=== PATIENT | female | born 1935 | race Caucasian/White ===

== ENCOUNTER 2021-04-18 12:12 | Inpatient (IN) | payer MEDICARE ==
[~2021-04-18] VITALS: Ht 162.5 cm; Wt 83.0 kg
[2021-04-18 12:12] VITALS: BP 171/91
[2021-04-18 13:15] LABS: MEAN CELL VOLUME 94.2 fl (81.0-99.0); MEAN CORPUSCULAR HGB 31.2 pg (27.0-31.0); MEAN CORPUSCULAR HGB CONC 33.1 g/dl (33.0-37.0); MEAN PLATELET VOLUME 10.2 fl (9.6-12.3); PLATELET COUNT AUTOMATED 246 10*3/uL (130-400); RED BLOOD COUNT 3.82 10*6/uL (4.10-5.10); RED CELL DISTRI WIDTH 12.4 % (0-14.5); WHITE BLOOD COUNT 11.4 10*3/uL (4.8-10.8)
[2021-04-18 13:32] LABS: ALBUMIN 2.7 gm/dl (3.1-4.5); CREATININE 1.34 mg/dL (0.55-1.02); POTASSIUM 4.9 mmol/L (3.5-5.1); TOTAL PROTEIN 6.6 gm/dL (6.4-8.2); TROPONIN I 0.016 ng/ml (<0.045)
[2021-04-18 13:37] LABS: OVALOCYTES MODERATE; PLATELET SUFFICIENCY NORMAL (NORMAL); TOTAL CELLS COUNTED 100 #CELLS
[2021-04-18 13:55] VITALS: BP 172/83
[2021-04-18 15:58] VITALS: BP 172/80
[2021-04-18 17:20] VITALS: BP 173/93
[2021-04-18 23:49] VITALS: BP 176/73
[2021-04-19 07:39] LABS: HEMATOCRIT 33.6 % (37.0-47.0); MEAN CELL VOLUME 95.7 fl (81.0-99.0); MEAN CORPUSCULAR HGB 31.9 pg (27.0-31.0); MEAN CORPUSCULAR HGB CONC 33.3 g/dl (33.0-37.0); MEAN PLATELET VOLUME 10.1 fl (9.6-12.3); PLATELET COUNT AUTOMATED 213 10*3/uL (130-400); RED BLOOD COUNT 3.51 10*6/uL (4.10-5.10); RED CELL DISTRI WIDTH 12.4 % (0-14.5); WHITE BLOOD COUNT 12.5 10*3/uL (4.8-10.8)
[2021-04-19 07:48] LABS: ACT PARTIAL THROMBO TIME 23.1 SECONDS (20.0-32.1); INTERNATIONAL NORM RATIO 1.1 (2.0-3.5)
[2021-04-19 08:00] VITALS: BP 112/68
[2021-04-19 08:12] LABS: ALBUMIN 2.4 gm/dl (3.1-4.5); ALKALINE PHOSPHATASE 77 U/L (45-117); BUN 55 mg/dl (7-24); CHLORIDE 113 mmol/L (98-107); CHOLESTEROL 135 mg/dL (<200); FREE T4 0.96 ng/dl (0.76-1.46); LDL CHOLESTEROL 75 mg/dL (9-159); SGOT/AST 8 IU/L (3-35); SGPT/ALT 14 U/L (12-78); SODIUM 142 mmol/L (136-145); TOTAL PROTEIN 5.8 gm/dL (6.4-8.2); TRIGLYCERIDES 98 mg/dl (<150)
[2021-04-19 08:32] LABS: PLATELET SUFFICIENCY NORMAL (NORMAL); TOTAL CELLS COUNTED 100 #CELLS
[2021-04-19 12:00] VITALS: BP 116/70
[2021-04-19 14:00] VITALS: BP 132/72
[2021-04-19 20:00] VITALS: BP 158/71
[2021-04-20] VITALS: BP 106/55
[2021-04-20 07:31] LABS: MEAN CELL VOLUME 96.5 fl (81.0-99.0); MEAN CORPUSCULAR HGB 32.2 pg (27.0-31.0); MEAN CORPUSCULAR HGB CONC 33.3 g/dl (33.0-37.0); MEAN PLATELET VOLUME 10.2 fl (9.6-12.3); PLATELET COUNT AUTOMATED 191 10*3/uL (130-400); RED BLOOD COUNT 3.42 10*6/uL (4.10-5.10); RED CELL DISTRI WIDTH 12.6 % (0-14.5); WHITE BLOOD COUNT 14.7 10*3/uL (4.8-10.8)
[2021-04-20 07:41] LABS: CREATININE 1.22 mg/dL (0.55-1.02); POTASSIUM 4.2 mmol/L (3.5-5.1)
[2021-04-20 08:00] VITALS: BP 154/74
[2021-04-20 08:34] LABS: PLATELET SUFFICIENCY NORMAL (NORMAL); TOTAL CELLS COUNTED 100 #CELLS
[2021-04-20 12:00] VITALS: BP 102/50
[2021-04-20 16:00] VITALS: BP 128/56
[2021-04-20 20:00] VITALS: BP 136/57
[2021-04-21] VITALS: BP 143/69
[2021-04-21 06:50] LABS: BASO % 0.1 % (0.0-1.0); HEMATOCRIT 35.1 % (37.0-47.0); LYMPH # 1.1 10*3/uL (1.3-4.4); LYMPH % 7.4 % (27.0-41.0); MEAN CELL VOLUME 95.9 fl (81.0-99.0); MEAN CORPUSCULAR HGB 31.4 pg (27.0-31.0); MEAN CORPUSCULAR HGB CONC 32.8 g/dl (33.0-37.0); MEAN PLATELET VOLUME 10.5 fl (9.6-12.3); MONO # 0.8 10*3/uL (0.1-1.0); MONO % 5.6 % (3.0-9.0); NEUT # 12.1 10*3/uL (2.3-7.9); NEUT % 84.9 % (47.0-73.0); PLATELET COUNT AUTOMATED 190 10*3/uL (130-400); RED BLOOD COUNT 3.66 10*6/uL (4.10-5.10); RED CELL DISTRI WIDTH 12.6 % (0-14.5); WHITE BLOOD COUNT 14.3 10*3/uL (4.8-10.8)
[2021-04-21 07:16] LABS: CREATININE 1.13 mg/dL (0.55-1.02); POTASSIUM 4.6 mmol/L (3.5-5.1)
[2021-04-21 08:00] VITALS: BP 151/75
[2021-04-21 12:00] VITALS: BP 119/45
[2021-04-21 16:00] VITALS: BP 114/46
[2021-04-21 20:00] VITALS: BP 134/62
[2021-04-22] VITALS: BP 111/68
[2021-04-22 07:04] LABS: BASO % 0.1 % (0.0-1.0); EOS % 0.1 % (1.0-4.0); HEMATOCRIT 34.1 % (37.0-47.0); LYMPH % 7.2 % (27.0-41.0); MEAN CELL VOLUME 95.5 fl (81.0-99.0); MEAN CORPUSCULAR HGB 31.4 pg (27.0-31.0); MEAN CORPUSCULAR HGB CONC 32.8 g/dl (33.0-37.0); MEAN PLATELET VOLUME 10.6 fl (9.6-12.3); MONO # 1.1 10*3/uL (0.1-1.0); MONO % 7.6 % (3.0-9.0); NEUT # 11.8 10*3/uL (2.3-7.9); NEUT % 83.2 % (47.0-73.0); PLATELET COUNT AUTOMATED 202 10*3/uL (130-400); RED BLOOD COUNT 3.57 10*6/uL (4.10-5.10); RED CELL DISTRI WIDTH 12.5 % (0-14.5); WHITE BLOOD COUNT 14.2 10*3/uL (4.8-10.8)
[2021-04-22 07:12] LABS: INTERNATIONAL NORM RATIO 1.1 (2.0-3.5)
[2021-04-22 07:21] LABS: POTASSIUM 4.6 mmol/L (3.5-5.1)
[2021-04-22 07:22] LABS: CREATININE 1.1 mg/dL (0.55-1.02)
[2021-04-22 08:00] VITALS: BP 130/64
[2021-04-22 12:00] VITALS: BP 104/53
[2021-04-22 16:00] VITALS: BP 147/68
[2021-04-22 20:00] VITALS: BP 103/51
[2021-04-23] VITALS: BP 129/59
[2021-04-23 06:29] LABS: BASO % 0.1 % (0.0-1.0); EOS % 0.1 % (1.0-4.0); HEMATOCRIT 33.8 % (37.0-47.0); LYMPH # 1.2 10*3/uL (1.3-4.4); LYMPH % 8.3 % (27.0-41.0); MEAN CELL VOLUME 94.4 fl (81.0-99.0); MEAN CORPUSCULAR HGB 31.3 pg (27.0-31.0); MEAN CORPUSCULAR HGB CONC 33.1 g/dl (33.0-37.0); MEAN PLATELET VOLUME 10.6 fl (9.6-12.3); MONO % 6.9 % (3.0-9.0); NEUT # 11.6 10*3/uL (2.3-7.9); PLATELET COUNT AUTOMATED 206 10*3/uL (130-400); RED BLOOD COUNT 3.58 10*6/uL (4.10-5.10); RED CELL DISTRI WIDTH 12.5 % (0-14.5); WHITE BLOOD COUNT 13.9 10*3/uL (4.8-10.8)
[2021-04-23 06:39] LABS: CREATININE 1.2 mg/dL (0.55-1.02); POTASSIUM 4.9 mmol/L (3.5-5.1)
[2021-04-23 08:00] VITALS: BP 109/51
[2021-04-23 12:25] VITALS: BP 100/44
[2021-04-23 16:00] VITALS: BP 116/62
[2021-04-23 20:00] VITALS: BP 105/48
[2021-04-23 21:47] VITALS: BP 120/56
[2021-04-24] VITALS: BP 119/53; BP 143/79
[2021-04-24 06:32] LABS: BASO % 0.1 % (0.0-1.0); EOS % 0.1 % (1.0-4.0); HEMATOCRIT 34.2 % (37.0-47.0); LYMPH # 1.1 10*3/uL (1.3-4.4); LYMPH % 8.9 % (27.0-41.0); MEAN CELL VOLUME 95.8 fl (81.0-99.0); MEAN CORPUSCULAR HGB 31.4 pg (27.0-31.0); MEAN CORPUSCULAR HGB CONC 32.7 g/dl (33.0-37.0); MEAN PLATELET VOLUME 10.7 fl (9.6-12.3); MONO # 0.8 10*3/uL (0.1-1.0); NEUT # 9.9 10*3/uL (2.3-7.9); NEUT % 82.7 % (47.0-73.0); PLATELET COUNT AUTOMATED 215 10*3/uL (130-400); RED BLOOD COUNT 3.57 10*6/uL (4.10-5.10); RED CELL DISTRI WIDTH 12.5 % (0-14.5); WHITE BLOOD COUNT 11.9 10*3/uL (4.8-10.8)
[2021-04-24 06:39] LABS: CREATININE 1.18 mg/dL (0.55-1.02); POTASSIUM 5.1 mmol/L (3.5-5.1)
[2021-04-24 08:00] VITALS: BP 119/70
[2021-04-24 12:00] VITALS: BP 110/81
[2021-04-24] MEDS ORDERED: ELIQUIS5 M1 PO (12:27)
[2021-04-24] MEDS ORDERED: CARVEDILOL6.25 MG PO (12:27)
[2021-04-24] MEDS ORDERED: JANUVIA50 MG PO (12:27)
[2021-04-24] MEDS ORDERED: DECADRON6 M1 PO (12:27)
[2021-04-24] MEDS ORDERED: AMARYL4 MG PO (12:27)
[2021-05-03] MEDS ORDERED: CEPHALEXIN500 M1 PO (11:43)
[2021-05-03] MEDS ORDERED: NYAMYC15 GM T (11:43)
== END 2021-04-24 15:01 | DRG 166 ==
LOC: ED 12:12 → EDHOLD 15:13 → 4E 15:13
PROVIDERS: Internal Medicine; Physician Assistant; ADMIT Internal Medicine; ATTEND Internal Medicine
PROC: 0JB90ZZ Excision of Buttock Subcutaneous Tissue and Fascia, Open Approach (ICD-10-PCS; principal; 2021-04-19)
PROC: 0JB90ZZ Excision of Buttock Subcutaneous Tissue and Fascia, Open Approach (ICD-10-PCS; 2021-04-19)
DX: U07.1 COVID-19 (principal); L89.153 Pressure ulcer of sacral region, stage 3; L89.323 Pressure ulcer of left buttock, stage 3; N17.0 Acute kidney failure with tubular necrosis; L89.313 Pressure ulcer of right buttock, stage 3; E44.0 Moderate protein-calorie malnutrition; D64.9 Anemia, unspecified; E11.65 Type 2 diabetes mellitus with hyperglycemia; E11.69 Type 2 diabetes mellitus with other specified complication; E11.22 Type 2 diabetes mellitus with diabetic chronic kidney disease; E83.41 Hypermagnesemia; E78.5 Hyperlipidemia, unspecified; I48.91 Unspecified atrial fibrillation; I12.9 Hypertensive chronic kidney disease with stage 1 through stage 4 chronic kidney disease, or unspecified chronic kidney disease; Z68.32 Body mass index [BMI] 32.0-32.9, adult; Z91.041 Radiographic dye allergy status; Z95.0 Presence of cardiac pacemaker; Z82.0 Family history of epilepsy and other diseases of the nervous system; Z82.49 Family history of ischemic heart disease and other diseases of the circulatory system

== ENCOUNTER 2021-05-06 16:06 | Inpatient (IN) | payer MEDICARE ==
[~2021-05-06] VITALS: Ht 162.5 cm; Wt 86.2 kg
[~2021-05-06 16:06] MED LIST: AMARYL4 MG PO; CARVEDILOL6.25 MG PO; CEPHALEXIN500 M1 PO; DECADRON6 M1 PO; ELIQUIS5 M1 PO; JANUVIA50 MG PO; NYAMYC15 GM T
[2021-05-06 16:13] VITALS: BP 94/34
[2021-05-06] MEDS ORDERED: MACROBID100 M1 PO (16:25)
[2021-05-06] MEDS ORDERED: JANUVIA100 MG PO (16:26)
[2021-05-06] MEDS ORDERED: NYSTATIN CREAM15 GM T (16:27)
[2021-05-06] MEDS ORDERED: HUMALOG100 UNIT/2 SC (16:28)
[2021-05-06] MEDS ORDERED: AMARYL4 MG PO (16:28)
[2021-05-06] MEDS ORDERED: ELIQUIS5 M1 PO (16:29)
[2021-05-06] MEDS ORDERED: CARVEDILOL6.25 MG PO (16:29)
[2021-05-06 16:42] LABS: HEMATOCRIT 28.4 % (37.0-47.0); MEAN CELL VOLUME 95.3 fl (81.0-99.0); MEAN CORPUSCULAR HGB 31.9 pg (27.0-31.0); MEAN CORPUSCULAR HGB CONC 33.5 g/dl (33.0-37.0); MEAN PLATELET VOLUME 10.5 fl (9.6-12.3); PLATELET COUNT AUTOMATED 180 10*3/uL (130-400); RED BLOOD COUNT 2.98 10*6/uL (4.10-5.10); RED CELL DISTRI WIDTH 13.3 % (0-14.5); WHITE BLOOD COUNT 20.7 10*3/uL (4.8-10.8)
[2021-05-06 16:56] LABS: ALBUMIN 1.5 gm/dl (3.1-4.5); CREATININE 1.67 mg/dL (0.55-1.02); POTASSIUM 4.6 mmol/L (3.5-5.1)
[2021-05-06 17:10] LABS: BURR CELLS MODERATE; PLATELET SUFFICIENCY NORMAL (NORMAL); TOTAL CELLS COUNTED 100 #CELLS
[2021-05-06 17:11] LABS: OVALOCYTES FEW
[2021-05-06 17:26] LABS: BILIRUBIN Negative (Negative); BLOOD Negative (Negative); CLARITY Clear (Clear); COLOR Yellow (Yellow); GLUCOSE 3+ (Negative); KETONE Negative (Negative); LEUKO ESTERASE 1+ (Negative); NITRITE Negative (Negative); UROBILINOGEN 0.2 E.U./dl (0.0-1.0)
[2021-05-06 17:34] LABS: BACTERIA 3+
[2021-05-06 18:32] VITALS: BP 104/36
[2021-05-06 19:31] VITALS: BP 81/32
[2021-05-07] VITALS (10 sets, daily range): BP systolic 82–100; BP diastolic 35–54
[2021-05-07 06:20] LABS: HEMATOCRIT 25.3 % (37.0-47.0); MEAN CELL VOLUME 95.5 fl (81.0-99.0); MEAN CORPUSCULAR HGB 31.3 pg (27.0-31.0); MEAN CORPUSCULAR HGB CONC 32.8 g/dl (33.0-37.0); MEAN PLATELET VOLUME 10.6 fl (9.6-12.3); PLATELET COUNT AUTOMATED 170 10*3/uL (130-400); RED BLOOD COUNT 2.65 10*6/uL (4.10-5.10); RED CELL DISTRI WIDTH 13.1 % (0-14.5); WHITE BLOOD COUNT 16.8 10*3/uL (4.8-10.8)
[2021-05-07 06:47] LABS: ALBUMIN 1.2 gm/dl (3.1-4.5); CREATININE 1.51 mg/dL (0.55-1.02); POTASSIUM 4.3 mmol/L (3.5-5.1)
[2021-05-07 06:48] LABS: TOTAL PROTEIN 4.1 gm/dL (6.4-8.2)
[2021-05-07 07:53] LABS: ACANTHOCYTES MODERATE; PLATELET SUFFICIENCY NORMAL (NORMAL); TOTAL CELLS COUNTED 100 #CELLS
[2021-05-08 06:28] LABS: HEMATOCRIT 26.8 % (37.0-47.0); MEAN CELL VOLUME 97.5 fl (81.0-99.0); MEAN CORPUSCULAR HGB 31.3 pg (27.0-31.0); MEAN CORPUSCULAR HGB CONC 32.1 g/dl (33.0-37.0); MEAN PLATELET VOLUME 10.1 fl (9.6-12.3); PLATELET COUNT AUTOMATED 172 10*3/uL (130-400); RED BLOOD COUNT 2.75 10*6/uL (4.10-5.10); RED CELL DISTRI WIDTH 13.4 % (0-14.5); WHITE BLOOD COUNT 13.1 10*3/uL (4.8-10.8)
[2021-05-08 06:41] LABS: CREATININE 1.21 mg/dL (0.55-1.02); POTASSIUM 4.3 mmol/L (3.5-5.1)
[2021-05-08 07:30] LABS: ACANTHOCYTES MODERATE; PLATELET SUFFICIENCY NORMAL (NORMAL); TOTAL CELLS COUNTED 100 #CELLS
[2021-05-08 08:00] VITALS: BP 88/40
[2021-05-08 12:00] VITALS: BP 88/33
[2021-05-08 16:00] VITALS: BP 89/36
[2021-05-08 20:00] VITALS: BP 99/50
[2021-05-09] VITALS: BP 98/48
[2021-05-09 06:20] LABS: BASO % 0.1 % (0.0-1.0); EOS # 0.1 10*3/uL (0.0-0.4); EOS % 0.9 % (1.0-4.0); HEMATOCRIT 25.8 % (37.0-47.0); LYMPH # 0.8 10*3/uL (1.3-4.4); LYMPH % 5.4 % (27.0-41.0); MEAN CELL VOLUME 95.6 fl (81.0-99.0); MEAN CORPUSCULAR HGB 30.7 pg (27.0-31.0); MEAN CORPUSCULAR HGB CONC 32.2 g/dl (33.0-37.0); MEAN PLATELET VOLUME 10.4 fl (9.6-12.3); MONO # 0.6 10*3/uL (0.1-1.0); MONO % 3.8 % (3.0-9.0); NEUT % 88.8 % (47.0-73.0); PLATELET COUNT AUTOMATED 196 10*3/uL (130-400); WHITE BLOOD COUNT 14.6 10*3/uL (4.8-10.8)
[2021-05-09 06:44] LABS: CREATININE 1.15 mg/dL (0.55-1.02); POTASSIUM 3.7 mmol/L (3.5-5.1)
[2021-05-09 12:00] VITALS: BP 98/45
[2021-05-09 16:00] VITALS: BP 104/69
[2021-05-09 20:00] VITALS: BP 98/42
[2021-05-10] VITALS (9 sets, daily range): BP systolic 86–113; BP diastolic 38–58
[2021-05-11] MEDS ORDERED: FLUOXETINE HCL10 M1 PO (06:29)
[2021-05-11 06:38] LABS: BASO % 0.2 % (0.0-1.0); EOS # 0.1 10*3/uL (0.0-0.4); EOS % 0.8 % (1.0-4.0); HEMATOCRIT 29.6 % (37.0-47.0); LYMPH # 1.1 10*3/uL (1.3-4.4); LYMPH % 8.8 % (27.0-41.0); MEAN CORPUSCULAR HGB 31.1 pg (27.0-31.0); MEAN CORPUSCULAR HGB CONC 31.1 g/dl (33.0-37.0); MEAN PLATELET VOLUME 9.9 fl (9.6-12.3); MONO # 0.5 10*3/uL (0.1-1.0); NEUT # 10.6 10*3/uL (2.3-7.9); NEUT % 83.8 % (47.0-73.0); PLATELET COUNT AUTOMATED 212 10*3/uL (130-400); RED BLOOD COUNT 2.96 10*6/uL (4.10-5.10); RED CELL DISTRI WIDTH 14.9 % (0-14.5); WHITE BLOOD COUNT 12.6 10*3/uL (4.8-10.8)
[2021-05-11 06:53] LABS: ALBUMIN 1.2 gm/dl (3.1-4.5); ALKALINE PHOSPHATASE 102 U/L (45-117); BUN 39 mg/dl (7-24); CHLORIDE 120 mmol/L (98-107); POTASSIUM 3.7 mmol/L (3.5-5.1); SGOT/AST 18 IU/L (3-35); SGPT/ALT 33 U/L (12-78); SODIUM 145 mmol/L (136-145); TOTAL PROTEIN 4.8 gm/dL (6.4-8.2)
[2021-05-11 08:00] VITALS: BP 111/43
[2021-05-11 12:00] VITALS: BP 134/59
[2021-05-11 16:00] VITALS: BP 123/55
[2021-05-11 20:00] VITALS: BP 112/55
[2021-05-12] VITALS: BP 117/42
[2021-05-12 04:17] VITALS: BP 120/60
[2021-05-12 08:00] VITALS: BP 135/45
[2021-05-12 10:41] LABS: HEMATOCRIT 28.7 % (37.0-47.0); MEAN CELL VOLUME 97.3 fl (81.0-99.0); MEAN CORPUSCULAR HGB 30.8 pg (27.0-31.0); MEAN CORPUSCULAR HGB CONC 31.7 g/dl (33.0-37.0); MEAN PLATELET VOLUME 9.6 fl (9.6-12.3); PLATELET COUNT AUTOMATED 261 10*3/uL (130-400); RED BLOOD COUNT 2.95 10*6/uL (4.10-5.10); WHITE BLOOD COUNT 14.1 10*3/uL (4.8-10.8)
[2021-05-12 10:52] LABS: CREATININE 1.13 mg/dL (0.55-1.02); POTASSIUM 3.6 mmol/L (3.5-5.1)
[2021-05-12 11:04] LABS: PLATELET SUFFICIENCY NORMAL (NORMAL); TOTAL CELLS COUNTED 100 #CELLS
[2021-05-12 11:05] LABS: ACANTHOCYTES FEW; BURR CELLS MODERATE; OVALOCYTES FEW; SCHISTOCYTES FEW
[2021-05-12] MEDS ORDERED: CEFUROXIME AXE500 MG PO (11:34)
[2021-05-12] MEDS ORDERED: VIBRA-TAB100 MG PO (11:34)
[2021-05-12 12:00] VITALS: BP 124/47
[2021-05-12 16:00] VITALS: BP 117/50
== END 2021-05-12 18:06 | DRG 853 ==
LOC: ED 16:06 → EDHOLD 18:34 → 4E 18:34 → EDHOLD 18:51 → 4E 05-07 17:45
PROVIDERS: Internal Medicine; ADMIT Emergency Medicine; ATTEND Emergency Medicine
PROC: 0KBP0ZZ Excision of Left Hip Muscle, Open Approach (ICD-10-PCS; 2021-05-07)
PROC: 0KBN0ZZ Excision of Right Hip Muscle, Open Approach (ICD-10-PCS; 2021-05-07)
PROC: 0D1N0Z4 Bypass Sigmoid Colon to Cutaneous, Open Approach (ICD-10-PCS; principal; 2021-05-10)
DX: A41.9 Sepsis, unspecified organism (principal); L89.324 Pressure ulcer of left buttock, stage 4; L89.314 Pressure ulcer of right buttock, stage 4; L89.153 Pressure ulcer of sacral region, stage 3; N17.0 Acute kidney failure with tubular necrosis; E43 Unspecified severe protein-calorie malnutrition; J96.00 Acute respiratory failure, unspecified whether with hypoxia or hypercapnia; L03.317 Cellulitis of buttock; E87.1 Hypo-osmolality and hyponatremia; R65.20 Severe sepsis without septic shock; E78.5 Hyperlipidemia, unspecified; D64.9 Anemia, unspecified; I95.9 Hypotension, unspecified; I10 Essential (primary) hypertension; E11.65 Type 2 diabetes mellitus with hyperglycemia; Z91.041 Radiographic dye allergy status; Z79.4 Long term (current) use of insulin; Z79.899 Other long term (current) drug therapy; Z82.49 Family history of ischemic heart disease and other diseases of the circulatory system; Z82.0 Family history of epilepsy and other diseases of the nervous system; Z68.32 Body mass index [BMI] 32.0-32.9, adult

== ENCOUNTER → 2021-05-22 | Outpatient (CLI) | payer MEDICARE ==
[~2021-05-22] MED LIST changes: +CEFUROXIME AXE500 MG PO; +FLUOXETINE HCL10 M1 PO; +HUMALOG100 UNIT/2 SC; +JANUVIA100 MG PO; +MACROBID100 M1 PO; +NYSTATIN CREAM15 GM T; +VIBRA-TAB100 MG PO
== END ==
LOC: WOUNDCARE 09:58
PROVIDERS: ATTEND Surgery
DX: T81.89XA Other complications of procedures, not elsewhere classified, initial encounter (principal); E11.622 Type 2 diabetes mellitus with other skin ulcer; L89.154 Pressure ulcer of sacral region, stage 4; L98.491 Non-pressure chronic ulcer of skin of other sites limited to breakdown of skin; L89.890 Pressure ulcer of other site, unstageable; L89.300 Pressure ulcer of unspecified buttock, unstageable; L98.411 Non-pressure chronic ulcer of buttock limited to breakdown of skin; M72.6 Necrotizing fasciitis; E11.22 Type 2 diabetes mellitus with diabetic chronic kidney disease; N18.30 Chronic kidney disease, stage 3 unspecified; I10 Essential (primary) hypertension; E78.5 Hyperlipidemia, unspecified; Z85.528 Personal history of other malignant neoplasm of kidney; Z85.828 Personal history of other malignant neoplasm of skin; Z87.891 Personal history of nicotine dependence; Z98.890 Other specified postprocedural states; Y83.8 Other surgical procedures as the cause of abnormal reaction of the patient, or of later complication, without mention of misadventure at the time of the procedure; Y92.238 Other place in hospital as the place of occurrence of the external cause